=== PATIENT | female | born 1950 | race Caucasian/White ===

== ENCOUNTER → 2016-05-26 | Outpatient (CLI) | payer OTHER ==
--- NOTE | ~2016-05-26 | MY11 ---
[facility] A Service [facility] RADIOLOGY TEXT RESULTS PATIENT: JENNIFER LING LOCATION: [facility] : 54 UNIT #: [id number] AGE: [address]: LIBORIO VERAS APRN SEX: F ORDER DR: [id number] [facility] [address] [place], [place] [address] [id number] O MR#: [id number] Acc #: [id number] NAME: JENNIFER LING : 1950 SEX: F STUDY DATE/TIME: 05/26/2016 15:00 UNIT: [facility] ROOM: STUDY DESCRIPTION: MY Mammogram Screening Dig Porter Attending Physician: Liborio Veras Aprn Referring Physician: Liborio Veras Aprn Primary Care Physician: Liborio Veras Aprn MEDICAL IMAGING REPORT This report is preliminary unless electronic signature is present EXAM Digital screening mammogram, 05/26/2016 HISTORY 65-year-old woman no risk elevation. Patient in wheelchair with history of a CVA. Annual screening. COMPARISON 04/19/2015 FINDINGS Digital imaging of each breast was completed utilizing screening protocol. Review includes FDA-approved CAD device. The breast parenchyma is moderately dense with fibroglandular opacities remaining in each breast. This reflects a fibronodular pattern bilaterally. There is subareolar duct prominence also noted in each breast. I see no suspicious mass characteristics and no suspicious microcalcifications. There is no architectural deformity. IMPRESSION Benign mammogram. Annual screening recommended. Patients over the age of 40 are entered into a reminder system with target due date for the next mammogram. A result letter will also be sent to the patient. BIRADS: 2 Benign finding Dictated by... Shadi Hickman M.D. [facility] A Service [facility] RADIOLOGY TEXT RESULTS PATIENT: JENNIFER LING LOCATION: [facility] : 54 UNIT #: [id number] AGE: [address]: LIBORIO VERAS APRN SEX: F ORDER DR: THIS IS AN ELECTRONICALLY VERIFIED REPORT Shadi Hickman M.D. at 05/27/2016 8:02 AM RUDY/denys TD: 05/27/2016 01:47 JOB #: [id number] MEDICAL IMAGING REPORT COPY
== END | disposition home or self-care (01) ==
LOC: CWCC 14:35
DX: Z12.31 Encounter for screening mammogram for malignant neoplasm of breast (principal); Z86.73 Personal history of transient ischemic attack (TIA), and cerebral infarction without residual deficits
CPT/HCPCS: G0202